=== PATIENT | female | born 1995 | race African-American/Black ===

== ENCOUNTER 2016-10-12 15:56 | Emergency (ER) | payer MEDICAID ==
[~2016-10-12] VITALS: Ht 154.9 cm; Wt 89.4 kg
[~2016-10-12 15:56] MED LIST: AFRIN NASAL SPR30 ML NASAL; AUGMENTIN 875-1 EAC1 ORAL; BIRTH CONTROL PILLS; CEPHALEXIN500 MG ORAL; CIPRO500 MG PO; DEPO-PROVE150 MG/1 M IM; DEPO-PROVE150 MG/11 IM; DIFLUCAN150 MG PO; FLAGYL500 MG ORAL; FLUCONAZOLE150 MG ORAL; IBUPROFEN600 MG ORAL; IBUPROFEN600 MG PO; IBUPROFEN800 MG ORAL; KEFLEX500 MG ORAL; LOMOTIL TABLET1 EACH ORAL; MACROBID100 MG ORAL; METRONIDAZOLE500 MG ORAL; NAPROSYN500 M1 ORAL; NKM; PHENAZOPYRIDIN100 MG ORAL; ROBITUSSIN DM5 ML ORAL; TYLENOL #21 EA ORAL; VIBRAMYCIN100 MG ORAL; ZOFRAN ODT4 MG ORAL
[2016-10-12 16:00] VITALS: BP 136/94
--- NOTE | 2016-10-12 16:17 | Emergency Room Report ---
History of Present Illness General Chief Complaint: Nausea Source: Medical Record Present Illness HPI The patient is a 21-year-old female at 11 weeks gestation presenting for nausea and vomiting which began 2 days prior. The patient states that she has had an ultrasound recently which showed a viable .The patient denies any abdominal pain, cramping, vaginal discharge, vaginal bleeding, flank pain, dysuria, hematuria, increased urinary frequency Allergies: Coded Allergies: No Known Allergies (Unverified , 01/08/14) Patient History Past Medical History: see triage record Pertinent Family History: none Last Menstrual Period: 06/2016 Now: Yes : 1 Para: 0 Reviewed Nursing Documentation: PMH: Agreed, PSxH: Agreed Nursing Documentation-PMH Past Medical History: No Stated History Hx Cardiac Problems: No Hx Cancer: No Hx Gastrointestinal Problems: No Hx Neurological Problems: No Review of Systems All Other Systems: negative except mentioned in HPI Physical Exam Vital Signs Date Time Temp Pulse Resp B/P Pulse Ox O2 Delivery O2 Flow Rate FiO2 10/12/16 15:59 97.9 108 18 136/94 100 Room Air Sp02 EP Interpretation: reviewed, normal General Appearance: no apparent distress, alert, GCS 15, non-toxic Head: normocephalic, atraumatic Eyes: bilateral eye PERRL, bilateral eye normal inspection Respiratory: chest non-tender, lungs clear, normal breath sounds, speaking full sentences Cardiovascular #1: regular rate, rhythm, no edema Gastrointestinal: normal bowel sounds, non tender, soft, no mass, non-distended , no guarding, no rebound Genitourinary: normal inspection, no CVA tenderness Musculoskeletal: back normal, gait/station normal, normal range of motion, non- tender Neurologic: alert, oriented x3, responsive, motor strength/tone normal, sensory intact, speech normal Psychiatric: judgement/insight normal, memory normal, mood/affect normal, no suicidal/homicidal ideation Skin: normal color, no rash, warm/dry, well hydrated Medical Decision Making PA Attestation Dr. Dill is my supervising physician. Patient management was discussed with my supervising physician Diagnostic Impression: Primary Impression: Nausea and vomiting in ER Course The patient is a 21-year-old female at 11 weeks gestation presenting for nausea and vomiting which began 2 days prior. Differential diagnoses considered include but not limited to threatened , incomplete , complete Physical exam: Vitals within normal limits. No apparent distress Abdomen is soft and nontender. Normal bowel sounds. No mass. No discoloration. No CVA tenderness. CBC and CMP are unremarkable. Urinalysis unremarkable. Beta hCG is 10,000 which is less than expected for this gestational age The patient be discharged home and is given all laboratory results. Patient will followup with [facility] for repeat beta hCG and evaluation. ER precautions are given Laboratory Tests Test 10/12/16 16:15 10/12/16 16:20 Urine Color Pale yellow Urine Appearance Slightly cloudy Urine pH 8 (4.5-8.0) Urine Specific [place] 1.015 (1.005-1.035) Urine Protein Negative (NEGATIVE) Urine Glucose (UA) Negative (NEGATIVE) Urine Ketones Negative (NEGATIVE) Urine Occult Blood Negative (NEGATIVE) Urine Nitrite Negative (NEGATIVE) Urine Bilirubin Negative (NEGATIVE) Urine Urobilinogen Normal MG/DL (0.0-1.0) Urine Leukocyte Esterase 1+ (NEGATIVE) H Urine RBC 0-2 /HPF (0 - 2) Urine WBC 2-4 /HPF (0 - 2) Urine Squamous Epithelial Cells Many /LPF (NONE/OCC) H Urine Bacteria Few /HPF (NONE) Urine HCG, Qualitative Positive White Blood Count 10.2 K/UL (4.8-10.8) Red Blood Count 5.04 M/UL (4.20-5.40) Hemoglobin 12.9 G/DL (12.0-16.0) Hematocrit 39.5 % (37.0-47.0) Mean Corpuscular Volume 78 FL (80-99) L Mean Corpuscular Hemoglobin 25.6 PG (27.0-31.0) L Mean Corpuscular Hemoglobin Concent 32.7 G/DL (32.0-36.0) Red Cell Distribution Width 13.8 % (11.6-14.8) Platelet Count 277 K/UL (150-450) Mean Platelet Volume 7.6 FL (6.5-10.1) Neutrophils (%) (Auto) 68.3 % (45.0-75.0) Lymphocytes (%) (Auto) 19.3 % (20.0-45.0) L Monocytes (%) (Auto) 10.7 % (1.0-10.0) H Eosinophils (%) (Auto) 0.9 % (0.0-3.0) Basophils (%) (Auto) 0.8 % (0.0-2.0) Human Chorionic Gonadotropin, Quant 69099 mIU/mL Lab Results Impression CBC and CMP are unremarkable. Urinalysis unremarkable. Beta hCG is 10,000 which is less than expected for this gestational age Last Vital Signs Date Time Temp Pulse Resp B/P Pulse Ox O2 Delivery O2 Flow Rate FiO2 10/12/16 16:00 18 136/94 100 Room Air 10/12/16 15:59 97.9 108 Status: improved Disposition: HOME, SELF-CARE Condition: Improved Scripts Pyridoxine Hcl (PYRIDOXINE HCL) 25 Mg Tablet 25 MG PO TID, #30 TAB Prov: GENARO SR P.AMichelle 10/12/16 Doxylamine Succinate (SLEEP AID) 25 Mg Tablet 25 MG PO BEDTIME, #10 TAB Prov: GENARO SR P.A. 10/12/16 GENARO SR Oct 12, 2016 16:17
[2016-10-12 16:39] LABS: BASOPHILS % (AUTO) 0.8 % (0.0-2.0); EOSINOPHILS % (AUTO) 0.9 % (0.0-3.0); LYMPHOCYTES % (AUTO) 19.3 % (20.0-45.0); MEAN CORPUSCULAR HEMOGLOBIN 25.6 PG (27.0-31.0); MEAN CORPUSCULAR HGB CONC 32.7 G/DL (32.0-36.0); MEAN CORPUSCULAR VOLUME 78 FL (80-99); MEAN PLATELET VOLUME 7.6 FL (6.5-10.1); MONOCYTES % (AUTO) 10.7 % (1.0-10.0); NEUTROPHILS % (AUTO) 68.3 % (45.0-75.0); PLATELET COUNT 277 K/UL (150-450); RED BLOOD COUNT 5.04 M/UL (4.20-5.40); RED CELL DISTRIBUTION WIDTH 13.8 % (11.6-14.8); WHITE BLOOD COUNT 10.2 K/UL (4.8-10.8)
[2016-10-12 16:47] LABS: APPEARANCE,URINE SLIGHTLY CLOUDY; KETONES,URINE NEGATIVE (NEGATIVE); LEUKOCYTE ESTERASE ,URINE 1+ (NEGATIVE); NITRITE,URINE NEGATIVE (NEGATIVE); PH,URINE 8 (4.5-8.0); PROTEIN,URINE NEGATIVE (NEGATIVE); UROBILINOGEN,URINE NORMAL MG/DL (0.0-1.0)
[2016-10-12 16:57] LABS: RBC,URINE 0-2 /HPF (0 - 2); SQUAMOUS EPITHELIAL CELL,UR MANY /LPF (NONE/OCC)
[2016-10-12 16:58] LABS: BACTERIA,URINE FEW /HPF
[2016-10-12] MEDS ORDERED: SLEEP AID25 M1 PO (17:32)
[2016-10-12] MEDS ORDERED: PYRIDOXINE HCL25 MG PO (17:32)
[2016-10-12 17:35] VITALS: BP 112/80
== END 2016-10-12 17:39 | disposition home or self-care (01) ==
LOC: EMR 17:25
DX: O21.9 Vomiting of pregnancy, unspecified (principal); Z3A.11 11 weeks gestation of pregnancy
CPT/HCPCS: 36415; 81003; 81025; 84702; 85025; 96374; 96375; 99284; J2405

== ENCOUNTER 2016-10-14 17:33 | Emergency (ER) | payer MEDICAID ==
[~2016-10-14] VITALS: Ht 154.9 cm; Wt 84.8 kg
[~2016-10-14 17:33] MED LIST changes: +PYRIDOXINE HCL25 MG PO; +SLEEP AID25 M1 PO
[2016-10-14 18:06] VITALS: BP 115/76
--- NOTE | 2016-10-14 18:37 | Emergency Room Report ---
History of Present Illness General Chief Complaint: General Complaint Source: Patient Present Illness HPI 21-year-old female presents emergency department for repeat hCG Quant. Patient denies abdominal pain or vaginal bleeding. Patient states she is approximately 11 weeks was seen here in the emergency department by PA 2 days ago and was told to return for repeat Quant. Patient was initially seen for nausea vomiting during . HCG Quant is not consistent with estimation of 11 weeks . Patient states she had IUP established with her LOSS PREVENTION COORDINATOR at 7 weeks by ultrasound measurement. Patient states that her LOSS PREVENTION COORDINATOR is currently on a 2 week vacation which is why she is here in the emergency department. Pt. is taking vitamins. Patient states that her nausea and vomiting has subsided. Denies CP, Palpitations, LOC, AMS, dizziness, Changes in Vision, Sensation, paresthesias, or a sudden severe headache. Allergies: Coded Allergies: No Known Allergies (Unverified , 01/08/14) Patient History Past Medical History: see triage record Past Surgical History: none Pertinent Family History: none Last Menstrual Period: June, Now: Yes - 11 wk per Pt Immunizations: UTD Reviewed Nursing Documentation: PMH: Agreed, PSxH: Agreed Nursing Documentation-PMH Past Medical History: No Stated History Hx Cardiac Problems: No Hx Cancer: No Hx Gastrointestinal Problems: No Hx Neurological Problems: No Review of Systems All Other Systems: negative except mentioned in HPI Physical Exam Vital Signs Date Time Temp Pulse Resp B/P Pulse Ox O2 Delivery O2 Flow Rate FiO2 10/14/16 17:44 98.1 106 14 115/76 100 Room Air Sp02 EP Interpretation: reviewed, normal General Appearance: no apparent distress, alert, GCS 15, non-toxic Head: normocephalic, atraumatic Eyes: bilateral eye PERRL, bilateral eye normal inspection ENT: hearing grossly normal, normal pharynx, no angioedema, normal voice Neck: full range of motion, supple/symm/no masses Respiratory: chest non-tender, lungs clear, normal breath sounds, speaking full sentences Cardiovascular #1: regular rate, rhythm, no edema Gastrointestinal: non tender, soft, no guarding, no rebound Rectal: deferred Musculoskeletal: back normal, gait/station normal, normal range of motion, non- tender, no calf tenderness Neurologic: alert, oriented x3, responsive, motor strength/tone normal, sensory intact, speech normal Psychiatric: judgement/insight normal, memory normal, mood/affect normal, no suicidal/homicidal ideation Skin: normal color, no rash, warm/dry, well hydrated Lymphatic: no adenopathy Medical Decision Making PA Attestation Dr. lea is my supervising Physician whom patient management has been discussed with. Diagnostic Impression: Primary Impression: examination or test, positive result ER Course Pt. presents to the ED c/o requiring repeat HCG Quant Ddx considered but are not limited to: Threatened , missed miscarriage. , Spontaneous , 1st trimester . Vital signs: are WNL, pt. is afebrile Pelvic Exam: H&PE are most consistent with: normal/benign limited PE in early . no pain or vaginal bleeding. ORDERS: -serum Hcg Quant: 41,567 increased more than double since previously here 48 hours ago. -Pelvic US complete- not required at this time. no abdominal pain or vaginal bleeding. and has already had IUP established. ED INTERVENTIONS: None at this time. DISCHARGE: At this time pt. is stable for d/c to home. Will provide printed patient care instructions, and any necessary prescriptions. Care plan and follow up instructions have been discussed with the patient prior to discharge. Labs Test 10/14/16 18:05 Human Chorionic Gonadotropin, Quant 60716 mIU/mL Last Vital Signs Date Time Temp Pulse Resp B/P Pulse Ox O2 Delivery O2 Flow Rate FiO2 10/14/16 18:06 98.1 80 14 115/76 100 Room Air Disposition: HOME, SELF-CARE Condition: Stable Scripts Vit #91/Fe Fum/Fa/Dha ( + DHA COMBO PACK) 1 Each Combo..pkg 1 EACH PO DAILY, #1 PACK Prov: Malgorzata Peña 10/14/16 Referrals: [facility],REFERRING (PCP) Patient Instructions: First Trimester of Additional Instructions: Take medications as directed. ( Pre- vitamins) Follow up with OBGYN in 3-5 days * Your HCG Quant was 41,561 Return sooner to ED if new symptoms occur, or current symptoms become worse. Malgorzata Peña Oct 14, 2016 18:37
[2016-10-14] MEDS ORDERED: PRENATAL + DHA1 EAC1 PO (19:17)
[2016-10-14 19:22] VITALS: BP 114/75
== END 2016-10-14 19:22 | disposition home or self-care (01) ==
LOC: EMR 18:00
DX: Z34.91 Encounter for supervision of normal pregnancy, unspecified, first trimester (principal)
CPT/HCPCS: 36415; 84702; 99282

== ENCOUNTER 2016-10-24 20:45 | Emergency (ER) | payer MEDICAID ==
[~2016-10-24] VITALS: Ht 154.9 cm; Wt 89.4 kg
[~2016-10-24 20:45] MED LIST changes: +PRENATAL + DHA1 EAC1 PO
--- NOTE | 2016-10-24 21:31 | Emergency Room Report ---
History of Present Illness General Chief Complaint: Pain Source: Patient Present Illness HPI Patient presents with complaints of right upper back pain Patient points to the right posterior scapular region just below that area States that when she sits up straight improves the discomfort when she leans forward or turns backward she feels increased pain Denies any midline pain denies any fall or trauma Denies any pleurisy or shortness of breath Denies any dysuria or frequency Denies any abdominal pain patient is approximately 12 weeks has had initial ultrasound along with followup which were normal Allergies: Coded Allergies: No Known Allergies (Unverified , 01/08/14) Patient History Past Medical History: see triage record Pertinent Family History: none Last Menstrual Period: 07/23/16 Now: Yes - 12 week Reviewed Nursing Documentation: PMH: Agreed, PSxH: Agreed Nursing Documentation-PMH Past Medical History: No Stated History Hx Cardiac Problems: No Hx Cancer: No Hx Gastrointestinal Problems: No Hx Neurological Problems: No Review of Systems All Other Systems: negative except mentioned in HPI Physical Exam Vital Signs Date Time Temp Pulse Resp B/P Pulse Ox O2 Delivery O2 Flow Rate FiO2 10/24/16 21:09 98.4 96 14 114/96 99 Room Air Sp02 EP Interpretation: reviewed, normal General Appearance: well appearing, no apparent distress Head: normocephalic, atraumatic Eyes: bilateral eye EOMI, bilateral eye PERRL ENT: hearing grossly normal, normal pharynx, TMs + canals normal, uvula midline Neck: full range of motion, supple, no meningismus, no bony tend Respiratory: lungs clear, normal breath sounds, no rhonchi, no respiratory distress, no retraction, no accessory muscle use Cardiovascular #1: normal peripheral pulses, regular rate, rhythm, no edema, no gallop, no JVD, no murmur, other - Patient has reproducible discomfort on palpation just below the scapula running over the posterior rib line Gastrointestinal: normal bowel sounds, non tender, no organomegaly, non- distended, no guarding, no hernia, no pulsatile mass, no rebound, other - Fairly early I cannot appreciate a abdomen Genitourinary: no CVA tenderness Musculoskeletal: normal inspection Neurologic: oriented x3, responsive, under trimmer III-XII nml as tested, motor strength/ tone normal, sensory intact Psychiatric: mood/affect normal Skin: normal color, no rash, warm/dry, palpation normal Lymphatic: normal inspection, no adenopathy Medical Decision Making Diagnostic Impression: Primary Impression: UTI (urinary tract infection) ER Course Given the patient's pain and discomfort multiple differentials were considered Patient's discomfort appears to be mainly musculoskeletal And scapular in nature However the urine sample did show some bacteria Patient's otherwise CBC and chemistry are normal Patient was taking oral intake without any discomfort her Was placed on oral antibiotics and stable for close followup Please note that the patient has had previous ultrasonography, has also had recent outpatient ultrasonography There was no reports of vaginal bleeding or spotting and emergency ultrasound was not indicated Labs Test 10/24/16 21:25 10/24/16 21:32 Urine Color Pale yellow Urine Appearance Clear Urine pH 6 (4.5-8.0) Urine Specific [place] 1.020 (1.005-1.035) Urine Protein Negative (NEGATIVE) Urine Glucose (UA) Negative (NEGATIVE) Urine Ketones Negative (NEGATIVE) Urine Occult Blood Negative (NEGATIVE) Urine Nitrite Negative (NEGATIVE) Urine Bilirubin Negative (NEGATIVE) Urine Urobilinogen Normal MG/DL (0.0-1.0) Urine Leukocyte Esterase 2+ (NEGATIVE) Urine RBC 0-2 /HPF (0 - 2) Urine WBC 0-2 /HPF (0 - 2) Urine Squamous Epithelial Cells Few /LPF (NONE/OCC) Urine Bacteria Few /HPF (NONE) White Blood Count 9.6 K/UL (4.8-10.8) Red Blood Count 4.44 M/UL (4.20-5.40) Hemoglobin 12.5 G/DL (12.0-16.0) Hematocrit 34.9 % (37.0-47.0) Mean Corpuscular Volume 79 FL (80-99) Mean Corpuscular Hemoglobin 28.1 PG (27.0-31.0) Mean Corpuscular Hemoglobin Concent 35.7 G/DL (32.0-36.0) Red Cell Distribution Width 13.2 % (11.6-14.8) Platelet Count 248 K/UL (150-450) Mean Platelet Volume 7.8 FL (6.5-10.1) Neutrophils (%) (Auto) 68.9 % (45.0-75.0) Lymphocytes (%) (Auto) 19.1 % (20.0-45.0) Monocytes (%) (Auto) 10.3 % (1.0-10.0) Eosinophils (%) (Auto) 1.1 % (0.0-3.0) Basophils (%) (Auto) 0.6 % (0.0-2.0) Sodium Level 138 mEQ/L (135-145) Potassium Level 3.7 mEQ/L (3.4-4.9) Chloride Level 98 mEQ/L (98-107) Carbon Dioxide Level 22 mEQ/L (20-30) Anion Gap 18 (5-15) Blood Urea Nitrogen 7 mg/dL (7-23) Creatinine 0.6 mg/dL (0.5-0.9) Estimat Glomerular Filtration Rate > 60 mL/min (>60) Glucose Level 93 mg/dL (74-106) Calcium Level 9.4 mg/dL (8.6-10.2) Total Bilirubin < 0.2 mg/dL (0.0-1.2) Aspartate Amino Transf (AST/SGOT) 27 U/L (5-40) Alanine Aminotransferase (ALT/SGPT) 37 U/L (3-33) Alkaline Phosphatase 42 U/L (35-104) Total Protein 7.0 g/dL (6.6-8.7) Albumin 4.0 g/dL (3.5-5.2) Globulin 3.0 g/dL Albumin/Globulin Ratio 1.3 (1.0-2.7) Lipase 15 U/L (< 60) Last Vital Signs Date Time Temp Pulse Resp B/P Pulse Ox O2 Delivery O2 Flow Rate FiO2 10/24/16 21:09 98.4 96 14 114/96 99 Room Air Status: improved Disposition: HOME, SELF-CARE Condition: Improved Scripts Nitrofurantoin Monohyd/M-Cryst* (MACROBID 100 MG*) 100 Mg Capsule 100 MG ORAL EVERY 12 HOURS for 5 Days, CAP Prov: NAKITA MCBRIDE D.O. 10/24/16 Additional Instructions: Patient is provided with the discharge instructions notified to follow up with primary doctor in the next 2-3 days otherwise return to the er with any worsening symptoms. NAKITA MCBRIDE D.O. Oct 24, 2016 21:31
[2016-10-24 21:59] LABS: BASOPHILS % (AUTO) 0.6 % (0.0-2.0); EOSINOPHILS % (AUTO) 1.1 % (0.0-3.0); LYMPHOCYTES % (AUTO) 19.1 % (20.0-45.0); MEAN CORPUSCULAR HEMOGLOBIN 28.1 PG (27.0-31.0); MEAN CORPUSCULAR HGB CONC 35.7 G/DL (32.0-36.0); MEAN CORPUSCULAR VOLUME 79 FL (80-99); MEAN PLATELET VOLUME 7.8 FL (6.5-10.1); MONOCYTES % (AUTO) 10.3 % (1.0-10.0); NEUTROPHILS % (AUTO) 68.9 % (45.0-75.0); PLATELET COUNT 248 K/UL (150-450); RED BLOOD COUNT 4.44 M/UL (4.20-5.40); RED CELL DISTRIBUTION WIDTH 13.2 % (11.6-14.8); WHITE BLOOD COUNT 9.6 K/UL (4.8-10.8)
[2016-10-24 22:05] LABS: APPEARANCE,URINE CLEAR; KETONES,URINE NEGATIVE (NEGATIVE); LEUKOCYTE ESTERASE ,URINE 2+ (NEGATIVE); NITRITE,URINE NEGATIVE (NEGATIVE); PH,URINE 6 (4.5-8.0); PROTEIN,URINE NEGATIVE (NEGATIVE); UROBILINOGEN,URINE NORMAL MG/DL (0.0-1.0)
[2016-10-24 22:19] LABS: BACTERIA,URINE FEW /HPF; RBC,URINE 0-2 /HPF (0 - 2); SQUAMOUS EPITHELIAL CELL,UR FEW /LPF (NONE/OCC); WBC,URINE 0-2 /HPF (0 - 2)
[2016-10-24 22:21] LABS: ALANINE AMINOTRANSFERASE 37 U/L (3-33); ALBUMIN/GLOBULIN RATIO 1.3 (1.0-2.7); ANION GAP 18 (5-15); ASPARTATE AMINO TRANSFERASE 27 U/L (5-40); CALCIUM 9.4 mg/dL (8.6-10.2); CARBON DIOXIDE 22 mEQ/L (20-30); CHLORIDE 98 mEQ/L (98-107); CREATININE 0.6 mg/dL (0.5-0.9); GLOMERULAR FILTRATION RATE > 60 mL/min (>60); HEMOLYSIS 1; LIPASE 15 U/L (< 60); POTASSIUM 3.7 mEQ/L (3.4-4.9); SODIUM 138 mEQ/L (135-145)
[2016-10-24] MEDS ORDERED: NITROFURANTOIN100 M2 ORAL (22:26)
[2016-10-24 22:28] VITALS: BP 109/88
[2016-10-24 22:33] VITALS: BP 109/88
== END 2016-10-24 22:34 | disposition home or self-care (01) ==
LOC: EMR 21:22
DX: O23.41 Unspecified infection of urinary tract in pregnancy, first trimester (principal); Z3A.12 12 weeks gestation of pregnancy
CPT/HCPCS: 36415; 80053; 81003; 83690; 85025; 99283

== ENCOUNTER 2016-11-14 11:04 | Emergency (ER) | payer MEDICAID ==
[~2016-11-14] VITALS: Ht 154.9 cm; Wt 89.8 kg
[~2016-11-14 11:04] MED LIST changes: +NITROFURANTOIN100 M2 ORAL
[2016-11-14 11:20] VITALS: BP 100/50
[2016-11-14] MEDS ORDERED: Bisacodyl EC 5mg tab ORAL ONE (12:30)
[2016-11-14] MEDS ORDERED: Carbamide Peroxide 6.5% Ot Sol 15ML RIGHT EAR STA (12:53)
[2016-11-14] MEDS ORDERED: Hydrogen Peroxide 120ml Bottle TOPIC ONE (12:57)
[2016-11-14] MEDS ORDERED: DEBROX15 M1 LEFT EAR (14:15)
[2016-11-14 14:23] VITALS: BP 100/50
--- NOTE | 2016-11-14 23:22 | Emergency Room Report ---
History of Present Illness General Chief Complaint: General Complaint Source: Patient Present Illness HPI Patient with decreased hearing R ear for few days. Happened 2 years ago with cerumen impaction. No fevers, URI, sore throat. 15 weeks . First . Due April. No dysuria, hematuria, vag d/ c or bleeding. No abdominal pain. Allergies: Coded Allergies: No Known Allergies (Unverified , 01/08/14) Patient History Past Medical History: see triage record Social History Narrative home Last Menstrual Period: 06/23/16 Now: Yes : 1 Para: 0 Reviewed Nursing Documentation: PMH: Agreed, PSxH: Agreed Nursing Documentation-PMH Past Medical History: No Stated History Hx Cardiac Problems: No Hx Cancer: No Hx Gastrointestinal Problems: No Hx Neurological Problems: No Review of Systems All Other Systems: negative except mentioned in HPI Physical Exam Vital Signs Date Time Temp Pulse Resp B/P Pulse Ox O2 Delivery O2 Flow Rate FiO2 11/14/16 11:09 98.4 104 16 100/50 98 Room Air Sp02 EP Interpretation: reviewed, normal General Appearance: well appearing, no apparent distress Head: normocephalic, atraumatic Eyes: bilateral eye PERRL, bilateral eye normal inspection ENT: normal pharynx, normal voice, other - cerumen bilat Neck: full range of motion, supple Respiratory: no respiratory distress, speaking full sentences Cardiovascular #1: regular rate, rhythm Cardiovascular #2: 2+ radial (L) Gastrointestinal: normal inspection, normal bowel sounds, non tender Musculoskeletal: digits/nails normal, gait/station normal Neurologic: alert, normal gait, grossly normal Psychiatric: mood/affect normal Skin: no rash Medical Decision Making Diagnostic Impression: Primary Impression: Cerumen impaction Additional Impression: 15 weeks gestation of ER Course Patient with cerumen impaction. Needs irrigation. TM examined after irrigation = normal. Hearing normal. No issues at this time. Patient stable for outpatient observation and treatment. Last Vital Signs Date Time Temp Pulse Resp B/P Pulse Ox O2 Delivery O2 Flow Rate FiO2 11/14/16 14:23 98.4 104 16 100/50 98 Room Air Status: improved Disposition: HOME, SELF-CARE Condition: Improved Scripts Carbamide Peroxide (DEBROX) 15 Ml Drops 5 DROP LEFT EAR TWICE A DAY for 4 Days, ML 0 Refills Prov: Ubaldo Valderrama M.D. 11/14/16 Patient Instructions: Cerumen Impaction Additional Instructions: Consider using the clearing solution on the other side. Ubaldo Valderrama M.D. Nov 14, 2016 23:22
== END 2016-11-14 14:23 | disposition home or self-care (01) ==
LOC: EMR 11:39
DX: O26.892 Other specified pregnancy related conditions, second trimester (principal); Z3A.15 15 weeks gestation of pregnancy; H61.20 Impacted cerumen, unspecified ear
CPT/HCPCS: 99283

== ENCOUNTER 2017-01-16 23:14 | Emergency (ER) | payer MEDICAID ==
[~2017-01-16] VITALS: Ht 154.9 cm; Wt 89.8 kg
[~2017-01-16 23:14] MED LIST changes: +DEBROX15 M1 LEFT EAR
[2017-01-16 23:41] VITALS: BP 113/75
--- NOTE | 2017-01-17 00:34 | Emergency Room Report ---
History of Present Illness General Chief Complaint: General Complaint Source: Patient Present Illness HPI Is a 21-year-old female who is in her first . She spotting 25 weeks . She is walking and this occurred. She fell her butt. She came in to see if her baby is okay. She still felt it moving. Did not hit her abdomen. Complaining of some pain over the buttock area. No other injury. No bleeding. Allergies: Coded Allergies: No Known Allergies (Unverified , 01/08/14) Patient History Past Medical History: see triage record, old chart reviewed Past Surgical History: none Pertinent Family History: none Social History: Denies: smoking Last Menstrual Period: JUL 23 Now: Yes - 25 WEEKS : 1 Immunizations: other Reviewed Nursing Documentation: PMH: Agreed, PSxH: Agreed Nursing Documentation-PMH Past Medical History: No Stated History Hx Cardiac Problems: No Hx Cancer: No Hx Gastrointestinal Problems: No Hx Neurological Problems: No Physical Exam Vital Signs Date Time Temp Pulse Resp B/P Pulse Ox O2 Delivery O2 Flow Rate FiO2 01/16/17 23:27 98.1 82 18 110/73 98 Room Air vitals normal Sp02 EP Interpretation: reviewed, normal General Appearance: well appearing, no apparent distress, alert Head: normocephalic, atraumatic Eyes: bilateral eye EOMI, bilateral eye PERRL ENT: hearing grossly normal, normal pharynx Neck: full range of motion, supple, no meningismus Respiratory: chest non-tender, lungs clear, normal breath sounds Cardiovascular #1: regular rate, rhythm, no murmur Gastrointestinal: normal bowel sounds, non tender, no mass, no organomegaly, no bruit, non-distended, other - gravid Musculoskeletal: back normal, gait/station normal, normal range of motion Psychiatric: mood/affect normal Skin: warm/dry Medical Decision Making Diagnostic Impression: Primary Impression: Second trimester Additional Impression: Contusion, buttock Qualified Codes: S30.0XXA - Contusion of lower back and pelvis, initial encounter ER Course Patient presents with a fall but no direct injury to have abdomen. I bedside ultrasound show good movement and heart rate. We'll discharge home with reassurance. I told patient that if she started having more cramping or pain, she should go directly to hospital with labor and delivery. Patient expressed understanding. Last Vital Signs Date Time Temp Pulse Resp B/P Pulse Ox O2 Delivery O2 Flow Rate FiO2 01/16/17 23:27 98.1 82 18 110/73 98 Room Air Status: improved Disposition: HOME, SELF-CARE Condition: Stable Additional Instructions: Follow up with your OB in 7 days. Go to hospital with Labor and Delivery if having any pain or bleeding. ASHISH ZAFAR M.D. Jan 17, 2017 00:34
[2017-01-17 00:49] VITALS: BP 110/73
== END 2017-01-17 00:49 | disposition home or self-care (01) ==
LOC: EMR 23:53
DX: O26.892 Other specified pregnancy related conditions, second trimester (principal); Z3A.25 25 weeks gestation of pregnancy; S30.0XXA Contusion of lower back and pelvis, initial encounter; W19.XXXA Unspecified fall, initial encounter; Y92.89 Other specified places as the place of occurrence of the external cause
CPT/HCPCS: 99282

== ENCOUNTER 2019-06-26 22:48 | Emergency (ER) | payer MEDICAID ==
[~2019-06-26] VITALS: Ht 154.9 cm; Wt 85.7 kg
--- NOTE | 2019-06-26 23:07 | NUR ---
ED Nurse Note: Walk-in patient presents with complaints of cough x 4 days, patient reports taking left over antibiotic and feeling better before coughing up green blood streaked mucus. Patient reports no pain at this time. Will continue to monitor.
[2019-06-26 23:09] VITALS: BP 119/82
--- NOTE | 2019-06-26 23:15 | Emergency Room Report ---
History of Present Illness General Chief Complaint: Flu Like Symptoms Source: Patient Present Illness HPI Disclaimer: Please note that this report is being documented using [employer] technology. This can lead to erroneous entry secondary to incorrect interpretation by the dictating instrument. HPI: 23-year-old otherwise healthy female presents for evaluation of hemoptysis. Patient states that 3 days ago she experienced some sore throat, diffuse myalgias and arthralgias and fatigue. She believes she had strep throat again and took some leftover penicillin tablets that she had from a previous infection. She noted improvement in her sore throat which is now almost completely resolved. She has been having an intermittent productive cough producing some green phlegm. Today she had some blood streaking in that phlegm and presented for evaluation. Denies jo hemoptysis, abdominal pain, vomiting, diarrhea, chest pain, shortness of breath, fever or chills. PMH: Denies PSH: Hernia repair, section Allergies: Denies Social Hx: Non-smoker, occasional alcohol use Allergies: Coded Allergies: No Known Allergies (Unverified , 01/08/14) Patient History Last Menstrual Period: 06/04/19 Now: No - UNK Nursing Documentation-PMH Past Medical History: No Stated History Hx Cardiac Problems: No Hx Cancer: No Hx Gastrointestinal Problems: No Hx Neurological Problems: No Review of Systems All Other Systems: negative except mentioned in HPI Physical Exam Vital Signs Date Time Temp Pulse Resp B/P (MAP) Pulse Ox O2 Delivery O2 Flow Rate FiO2 06/26/19 22:58 97.5 76 16 119/82 (94) 96 Room Air General: Awake and alert, no acute distress HEENT: NC/AT. EOMI. no significant sinus tenderness. Uvula is midline, tonsils are 1+, nonerythematous, nonedematous, no purulent drainage. Moist mucous membranes Neck: Supple, trachea midline, mild anterior lymphadenopathy bilaterally. Cardiovascular: RRR. S1 and S2 normal. No murmur appreciated Resp: Normal work of breathing. No cough, wheezing or crackles appreciated Skin: Intact. No abrasions, laceration or rash over the exposed skin MSK: Normal tone and bulk. Moving all extremities. No obvious deformity. Neuro: Awake and alert. Mentating appropriately. Medical Decision Making Diagnostic Impression: Primary Impression: Upper respiratory infection ER Course 23-year-old female presents for evaluation of 3 days sore throat, myalgias, arthralgias, intermittent cough and 2 episodes of blood-tinged sputum. Overall , she is well-appearing with stable vital signs and a reassuring physical exam. Differential includes but is not limited to viral infection, pneumonia, lung nodule, tracheal injury, esophageal injury. Of these, viral syndrome appears to be most likely. We will obtain a x-ray of the chest to rule out infection, mass, pneumomediastinum or other significant pathology. If unremarkable she may be discharged home to follow-up with her PMD. Chest X-Ray Diagnostic Results Chest X-Ray Diagnostic Results : # of Views/Limited/Complete: 1 View Indication: Shortness of Breath EP Interpretation: Yes Interpretation: no consolidation, no effusion, no pneumothorax, no acute cardiopulmonary disease Impression: No acute disease Electronically Signed by: Electronically signed by Dr. Britton Moeller Reevaluation Time: 00:03 Last Vital Signs Date Time Temp Pulse Resp B/P (MAP) Pulse Ox O2 Delivery O2 Flow Rate FiO2 06/26/19 23:09 76 16 Room Air 06/26/19 23:09 97.5 119/82 96 Reevaluation Impression X-ray unremarkable, no obvious infiltrate or effusion. Will discharge home with symptomatic care for suspected viral URI. Given appropriate instructions for outpatient follow-up. She understands and agrees with this treatment plan will be discharged home. Disposition: HOME, SELF-CARE Condition: Stable Scripts Ibuprofen* (MOTRIN*) 600 Mg Tablet 600 MG ORAL Q8H PRN for For Pain, #30 TAB 0 Refills Prov: Britton Moeller MD 06/27/19 Referrals: NON PHYSICIAN (PCP) Britton Moeller MD Jun 26, 2019 23:15
--- NOTE | 2019-06-26 23:40 | NUR ---
ED Nurse Note: scada operator AT BEDSIDE.
[2019-06-27] MEDS ORDERED: IBUPROFEN600 MG ORAL (00:01)
--- NOTE | 2019-06-27 00:02 | NUR ---
ED Nurse Note: Patient cleared for discharge, verbalized understanding of discharge instructions. Patient ID band removed. Patient is A&Ox4, ambulatory with steady gait. Patient departed with all belongings.
[2019-06-27 00:03] VITALS: BP 119/82
--- NOTE | 2019-06-27 01:05 | Diagnostic Imaging Report ---
EXAM: XR Chest, 2 Views CLINICAL HISTORY: COUGH TECHNIQUE: Frontal and lateral views of the chest. COMPARISON: No relevant prior studies available. FINDINGS: Lungs: Unremarkable. No consolidation. Pleural space: Unremarkable. No pneumothorax. Heart: Unremarkable. No cardiomegaly. Mediastinum: Unremarkable. Bones joints: Unremarkable. IMPRESSION: No acute cardiopulmonary abnormality.
== END 2019-06-27 00:06 | disposition home or self-care (01) ==
LOC: EMR 23:10
DX: J06.9 Acute upper respiratory infection, unspecified (principal); R06.02 Shortness of breath
CPT/HCPCS: 71045; Z7502; 99283

== ENCOUNTER 2019-12-03 12:58 | Emergency (ER) | payer MEDICAID ==
[~2019-12-03] VITALS: Ht 154.9 cm; Wt 86.2 kg
[~2019-12-03 12:58] MED LIST changes: +PEPCID AC20 M2 PO
--- NOTE | 2019-12-03 13:42 | NUR ---
ED Nurse Note:blood and urine sent to labs
[2019-12-03 13:58] LABS: BASOPHILS % (AUTO) 0.9 % (0.0-2.0); HEMATOCRIT 38.1 % (37.0-47.0); HEMOGLOBIN 12.9 G/DL (12.0-16.0); LYMPHOCYTES % (AUTO) 19.6 % (20.0-45.0); MEAN CORPUSCULAR VOLUME 76 FL (80-99); MONOCYTES % (AUTO) 9.5 % (1.0-10.0); NEUTROPHILS % (AUTO) 69.1 % (45.0-75.0); PLATELET COUNT 300 K/UL (150-450); RED BLOOD COUNT 5.04 M/UL (4.20-5.40); RED CELL DISTRIBUTION WIDTH 13.2 % (11.6-14.8); WHITE BLOOD COUNT 8.5 K/UL (4.8-10.8)
[2019-12-03 14:02] LABS: APPEARANCE,URINE SLIGHTLY CLOUDY; BILIRUBIN, URINE NEGATIVE (NEGATIVE); GLUCOSE, URINE (UA) NEGATIVE (NEGATIVE); KETONES,URINE NEGATIVE (NEGATIVE); LEUKOCYTE ESTERASE ,URINE 1+ (NEGATIVE); NITRITE,URINE NEGATIVE (NEGATIVE); PH,URINE 6.5 (4.5-8.0); PROTEIN,URINE NEGATIVE (NEGATIVE); UROBILINOGEN,URINE NORMAL MG/DL (0.0-1.0)
[2019-12-03 14:07] LABS: ANION GAP 12 mmol/L (5-15); BLOOD UREA NITROGEN 6 mg/dL (7-18); CALCIUM 9.4 MG/DL (8.5-10.1); CARBON DIOXIDE 23 MMOL/L (21-32); CHLORIDE 102 MMOL/L (98-107); CREATININE 0.5 MG/DL (0.55-1.30); POTASSIUM 4.3 MMOL/L (3.5-5.1); SODIUM 137 MMOL/L (136-145)
[2019-12-03 14:11] LABS: ALANINE AMINOTRANSFERASE 19 U/L (12-78); ALBUMIN 3.7 G/DL (3.4-5.0); ALKALINE PHOSPHATASE 45 U/L (46-116); ASPARTATE AMINO TRANSFERASE 18 U/L (15-37); BILIRUBIN,TOTAL 0.3 MG/DL (0.2-1.0); COLOR,URINE YELLOW
--- NOTE | 2019-12-03 14:12 | NUR ---
ED Nurse Note:pt. was taken to abdominal U/S
[2019-12-03 14:22] VITALS: BP 113/67
--- NOTE | 2019-12-03 14:54 | Emergency Room Report ---
History of Present Illness General Chief Complaint: Back Pain-No Injury Source: Patient Present Illness HPI 24-year-old female with no significant past medical history who is G3, here reporting that she is 9 weeks and complaining of a 10 out of 10 back pain. Denies any fall or injury. Denies any abdominal pain, vaginal spotting. Denies headache and dizziness. Denies syncope and dizziness. Has not taken medication for symptom relief. Denies having any heavy objects. Reports that she is planning to have an scheduled this coming week. Is not taking vitamins. Denies saddle paresthesia, tingling numbness, urinary or bowel incontinence. Has not recently traveled, patient is afebrile. Chest pain, leg edema, shortness of breath, tobacco smoke, no other associated symptoms. COVID-19 risk:Travel to affect: No Has patient experienced palmer: No Allergies: Coded Allergies: No Known Allergies (Unverified , 01/08/14) Patient History Past Medical History: see triage record Past Surgical History: none Pertinent Family History: none Now: Yes : 2 Para: 2 Immunizations: UTD Reviewed Nursing Documentation: PMH: Agreed; PSxH: Agreed Nursing Documentation-PMH Past Medical History: No Stated History Hx Cardiac Problems: No Hx Cancer: No Hx Gastrointestinal Problems: No Hx Neurological Problems: No Review of Systems All Other Systems: negative except mentioned in HPI Physical Exam Vital Signs Date Time Temp Pulse Resp B/P (MAP) Pulse Ox O2 Delivery O2 Flow Rate FiO2 12/03/19 13:11 98.4 100 17 113/67 (82) 96 Room Air Sp02 EP Interpretation: reviewed, normal General Appearance: no apparent distress, alert, GCS 15, non-toxic Head: normocephalic, atraumatic Eyes: bilateral eye normal inspection, bilateral eye PERRL ENT: hearing grossly normal, normal pharynx, no angioedema, normal voice Neck: full range of motion, supple, thyroid normal, no meningismus, no bony tend, no carotid bruits, supple/symm/no masses Respiratory: chest non-tender, lungs clear, normal breath sounds, no rhonchi, no respiratory distress, no retraction, no accessory muscle use, no wheezing, speaking full sentences Cardiovascular #1: regular rate, rhythm, no edema, no murmur Cardiovascular #2: 2+ dorsalis pedis (R), 2+ dorsalis pedis (L) Gastrointestinal: normal bowel sounds, non tender, soft, non-distended, no guarding, no rebound Rectal: deferred Genitourinary: no CVA tenderness Musculoskeletal: back normal, normal range of motion, digits/nails normal, no calf tenderness, pelvis stable, gait/station normal, no lower extremity edema, non-tender Neurologic: alert, motor strength/tone normal, oriented x3, sensory intact, responsive, speech normal Psychiatric: judgement/insight normal, memory normal, mood/affect normal, no suicidal/homicidal ideation Skin: no rash Lymphatic: no adenopathy Medical Decision Making PA Attestation All my diagnosis and treatment plans were reviewed ad discussed with my supervising physician Dr. Valle Diagnostic Impression: Primary Impression: Back pain during ER Course 24-year-old female with no significant past medical history who is G3, here reporting that she is 9 weeks and complaining of a 10 out of 10 back pain. Denies any fall or injury. Denies any abdominal pain, vaginal spotting. Denies headache and dizziness. Denies syncope and dizziness. Has not taken medication for symptom relief. Denies having any heavy objects. Reports that she is planning to have an scheduled this coming week. Is not taking vitamins. Denies saddle paresthesia, tingling numbness, urinary or bowel incontinence. Has not recently traveled, patient is afebrile. Chest pain, leg edema, shortness of breath, tobacco smoke, no other associated symptoms. Ddx considered but are not limited to: Ectopic , abdominal pain during , vaginal spotting during , UTI during , back pain during , PE during Vital signs: are WNL, pt. is afebrile H&PE are most consistent with: Back pain during ORDERS: CBC, CMP, UA, beta-hCG, type and screen, OB ultrasound, Tylenol, lidocaine patch ER intervention: Tylenol, lidocaine patch DISCHARGE: At this time pt. is stable for d/c to home. Will provide printed patient care instructions, and any necessary prescriptions. Care plan and follow up instructions have been discussed with the patient prior to discharge. Patient to follow-up with AUDIT DIRECTOR, take medication as directed, worsening symptoms return to emergency room CT/MRI/US Diagnostic Results CT/MRI/US Diagnostic Results : Imaging Test Ordered: OB ultrasound Impression Single intrauterine , heart rate 157, no subchorionic hemorrhage , no distress noted Last Vital Signs Date Time Temp Pulse Resp B/P (MAP) Pulse Ox O2 Delivery O2 Flow Rate FiO2 12/03/19 14:22 98.4 17 113/67 96 Room Air 12/03/19 13:11 100 Disposition: HOME, SELF-CARE Condition: Stable Scripts Lidocaine Patch* (Lidoderm Patch*) 1 Each Adh..patch 1 PATCH TOPIC DAILY, #30 PATCH Patch(es) may remain in place for up to 12 hours in any 24-hour period. Prov: Mingo Chen 12/03/19 Acetaminophen* (ACETAMINOPHEN EXTRA STRENGTH*) 500 Mg Tablet 1000 MG ORAL Q6H, #30 TAB 0 Refills Prov: Mingo Chen 12/03/19 Referrals: NON PHYSICIAN (PCP) Patient Instructions: Back Pain, Adult Additional Instructions: Take medication as directed, follow-up with your AUDIT DIRECTOR, avoid strenuous physical activity, if worsening symptoms return to the emergency room Mingo Chen Dec 03, 2019 14:54
[2019-12-03] MEDS ORDERED: LIDODERM700 M1 TOPIC (14:59)
[2019-12-03] MEDS ORDERED: ACETAMINOPHEN500 M3 ORAL (14:59)
[2019-12-03] MEDS ORDERED: Acetaminophen 500mg (ES) tab ORAL ONE (15:00)
[2019-12-03 15:15] VITALS: BP 113/67
--- NOTE | 2019-12-03 15:15 | NUR ---
ER DISCHARGE NOTE: Patient is cleared to be discharged per ERMD, pt is aox4, on room air, with stable vital signs. pt was given dc and prescription instructions, pt was able to verbalize understanding, pt id band and iv site removed without complications. pt is able to ambulate with steady gait. pt took all belongings.
--- NOTE | 2019-12-03 15:22 | Diagnostic Imaging Report ---
Indication: Pelvic pain, patient Technique: Transabdominal images only of the pelvis. Doppler interrogation of the bilateral ovaries. No transvaginal images, per patient preference. Comparison: none Findings: Uterus measures 10.6 cm length by 6.3 cm AP. Within the endometrium, there is a gestational sac. This contains a pole with a crown-rump length of 20 mm, corresponding to estimated gestational age of 8 weeks 4 days. There is positive heart activity, heart rate 157 bpm. No evidence of subchorionic hemorrhage. Right ovary measures 3.9 cm length. Left ovary measures 2 cm length. No adnexal masses related. Normal ovarian blood flow on Doppler imaging. No free cul-de-sac fluid. No myometrial abnormality. Impression: Somewhat limited exam, due to lack of endovaginal images 8 week 4 day, by crown-rump length measurement, single live intrauterine . No unusual features
== END 2019-12-03 15:15 | disposition home or self-care (01) ==
LOC: EMR 13:50
DX: O26.891 Other specified pregnancy related conditions, first trimester (principal); Z3A.09 9 weeks gestation of pregnancy; M54.9 Dorsalgia, unspecified
CPT/HCPCS: 36415; 76801; 80053; 81003; 84702; 85025; Z7502; 76817; 99284

== ENCOUNTER 2020-08-11 11:19 | Emergency (ER) | payer MEDICAID ==
[~2020-08-11] VITALS: Ht 154.9 cm; Wt 79.8 kg
[~2020-08-11 11:19] MED LIST changes: +ACETAMINOPHEN500 M3 ORAL; +LIDODERM700 M1 TOPIC
[2020-08-11 11:30] VITALS: BP 143/91
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
[2020-08-11] MEDS ORDERED: LIDODERM700 M1 TOPIC (12:06)
[2020-08-11] MEDS ORDERED: IBUPROFEN600 M1 ORAL (12:06)
[2020-08-11] MEDS ORDERED: TYLENOL EXTRA500 MG ORAL (12:06)
--- NOTE | 2020-08-11 12:51 | Diagnostic Imaging Report ---
EXAM: CT Head Without Intravenous Contrast CLINICAL HISTORY: INJ TECHNIQUE: Axial computed tomography images of the head/brain without intravenous contrast. CTDI is 53.40 mGy and DLP is 965.40 mGy-cm. One or more of the following dose reduction techniques were used: automated exposure control, adjustment of the mA and/or kV according to patient size, use of iterative reconstruction technique. Coronal reformatted images were created and reviewed. COMPARISON: No relevant prior studies available. FINDINGS: Brain: Unremarkable. No evidence of acute intracranial hemorrhage. No significant white matter disease. No edema. No mass effect or midline shift. Ventricles: Unremarkable. No ventriculomegaly. Bones/joints: Unremarkable. No depressed skull fracture. Soft tissues: Unremarkable. Sinuses: Unremarkable as visualized. Visualized paranasal sinuses are clear. No sinus air-fluid levels. Mastoid air cells: Unremarkable as visualized. No mastoid effusion. IMPRESSION: Unremarkable noncontrast CT of the head/brain.
[2020-08-11 13:00] VITALS: BP 138/82
[2020-08-11 13:10] VITALS: BP 143/91
--- NOTE | 2020-08-11 13:10 | NUR ---
ED Nurse Note: Pt cleared by health care Provider for discharge. DC instructions/prescription was given and explained to pt and verbalized understanding of teachings. All medical deviecs such as ID band removed. Pt is AAO x4, ambulatory and left with all personal belongings.
== END 2020-08-11 13:19 | disposition home or self-care (01) ==
LOC: EMR 12:24
DX: S00.83XA Contusion of other part of head, initial encounter (principal); V43.52XA Car driver injured in collision with other type car in traffic accident, initial encounter; Y92.411 Interstate highway as the place of occurrence of the external cause
CPT/HCPCS: 70450; Z7502; 99284